=== PATIENT | female | born 1990 | race Caucasian/White ===

== ENCOUNTER → 2022-11-22 | Outpatient (CLI) | payer OTHER, SELFPAY ==
[2022-11-22 15:22] LABS: Absolute Lymphocyte Count 1.47 X10^3/uL (0.83-4.51); Absolute Neutrophil Count 4.8 X10^3/uL (2.0-7.7); Basophil# 0.02 X10^3/uL; Basophil% 0.3 % (0-1); Eosinophil# 0.08 X10^3/uL; Eosinophils% 1.1 % (0-5); Hematocrit 36.7 % (37-47); Hemoglobin 12.4 g/dL (12.0-15.0); Lymphocyte # 1.47 X10^3/ul (0.83-4.51); Lymphocyte % 20.8 % (19-41); Mean Corp Hgb Conc 33.8 g/dL (32-36); Mean Corpuscular Hgb 30.5 pg (27.0-32.0); Mean Corpuscular Volume 90.4 fL (81-99); Mean Platelet Vol. 9.8 fl (6.2-12.0); Monocyte# 0.65 X10^3/uL; Monocyte% 9.2 % (0-10); NRBC Flagged by Analyzer 0 % (0-5); Neutrophil % 67.8 % (47-70); Platelet Count 181 K/mm3 (150-450); RBC Distribution Width CV 13.2 % (11.6-14.6); Red Blood Count 4.06 M/mm3 (4.2-5.4); White Blood Count 7.1 K/mm3 (4.4-11.0)
[2022-11-22 15:40] LABS: ALB/GLOB Ratio 0.6 RATIO (0.9-2.4); AST(SGOT) 14 U/L (15-37); Alanine Aminotransfer ALT/SGPT 16 U/L (13-56); Albumin, Serum 2.6 g/dL (3.2-5.0); Alkaline Phosphatase 97 U/L (45-117); Anion Gap 6 (5-15); BUN 6 mg/dL (7-18); BUN/Creat Ratio 14.9 RATIO (10-20); Calcium,Total 8.9 mg/dL (8.5-10.1); Chloride 108 mmol/L (98-107); EST Glomerular Filtration Rate 191 mL/min (>60); Est Glom Filt Rate - Afr Amer 231 mL/min (>60); Glucose 98 mg/dL (74-106); Potassium 3.6 mmol/L (3.5-5.1); Protein, Total 6.6 g/dL (6.4-8.2); Sodium Level 136 mmol/L (136-145)
[2022-11-22 15:46] LABS: Protein, Urine (Random) < 6.0 mg/dL (<11.9)
[2022-11-22 15:51] LABS: Hemoglobin A1c 5.7 % (3.8-5.6)
[2022-11-22 16:55] LABS: HIV - WCH Non-Reactive (Nonreactive); Hepatitis B Surface Antigen Non-Reactive (Nonreactive); Hepatitis C Antibody Non-Reactive (Nonreactive); Rubella IgG Reactive (Nonreactive); Syphilis Antibodies Non-reactive
--- NOTE | 2022-11-22 18:42 | US_ITS ---
STUDY: SECOND AND THIRD TRIMESTER OBSTETRICAL ULTRASOUND - LIMITED REASON FOR EXAM: Female, 32 years old. Question placenta previa. LMP: Expected date of delivery of January 02, 2023. PRIOR ULTRASOUND: None. TECHNIQUE: Transabdominal and Transvaginal TECHNICAL QUALITY: Adequate. FINDINGS: There is a single intrauterine fetus. The fetus is in a cephalic presentation. There is demonstrated cardiac activity with a heart rate of 160 bpm. There is a normal amniotic fluid volume. The largest amniotic fluid pocket measures 6.92 cm. The amniotic fluid index (ÁLVARO) is 14.17 cm. The placenta is posterior and not low-lying. There is no evidence of previa. There are Grade 1 placental changes. The cervix measures 2.6 cm cm in length. BIOMETRY: BPD: 8.93 cm: 36 weeks, 1 days HC: 33.45 cm: 38 weeks, 2 days AC: 32.62 cm: 36 weeks, 4 days FL: 6.74 cm: 34 weeks, 4 days Age by LMP: 34 weeks, 1 days. PARK by LMP: January 02, 2023.. age by prior US: 36 weeks, 5 days. PARK by prior US: December 15, 2022. age by current US: 36 weeks, 5 days. PARK by current US: December 15, 2022. Estimated weight: 2846 grams, +/- 427 grams, 38 percentile. Gender: Indeterminant US/OB Limited With Biometrics IMPRESSION: 1. Live single intrauterine at 36 weeks, 5 days. PARK is December 15, 2022. This correlates with the expected date of delivery given by the patient based on previous ultrasound. 2. EFW 2846 g. 3. ÁLVARO of 14.17 cm. 4. Posterior grade 1 placenta. There is no evidence of previa. 5. Vertex presentation. Electronically Signed: Theodore Grissom DO at 20:23 EDT ,
== END | disposition home or self-care (01) ==
LOC: US 14:35
PROVIDERS: Referring Provider Obstetrics & Gynecology; Visit Provider Obstetrics & Gynecology
DX: Z34.90 Encounter for supervision of normal pregnancy, unspecified, unspecified trimester (principal)
CPT/HCPCS: 36415; 76816; 80053; 82570; 83036; 84156; 85025; 86703; 86762; 86780; 86803; 86850; 86900; 86901; 87086; 87088; 87340

== ENCOUNTER → 2022-12-05 | Outpatient (CLI) | payer OTHER, SELFPAY | END | disposition home or self-care (01) | LOC: LABSPEC 13:57 | PROVIDERS: Referring Provider Obstetrics & Gynecology; Visit Provider Obstetrics & Gynecology | DX: O09.90 Supervision of high risk pregnancy, unspecified, unspecified trimester (principal); Z3A.00 Weeks of gestation of pregnancy not specified | CPT/HCPCS: 87077; 87081; 87186 ==

== ENCOUNTER → 2022-12-15 | Outpatient (CLI) | payer OTHER, SELFPAY ==
--- NOTE | 2022-12-15 17:00 | US_ITS ---
STUDY: SECOND AND THIRD TRIMESTER OBSTETRICAL ULTRASOUND - LIMITED REASON FOR EXAM: Female, 32 years old growth LMP: 03/28/2022 PRIOR ULTRASOUND: None. TECHNIQUE: Standard TECHNICAL QUALITY: Adequate. FINDINGS: There is a single intrauterine fetus. The fetus is in a cephalic presentation. There is demonstrated cardiac activity with a heart rate of 160 bpm. There is a normal amniotic fluid volume. The largest amniotic fluid pocket measures 7.5 cm cm. The amniotic fluid index (ÁLVARO) is 14.2 cm cm. The placenta is posterior. The cervix measures 2.6 cm in length. BIOMETRY: BPD: 8.93 cm weeks, 1 days HC: 33.45 cm: 38 weeks, 2 days AC: 32.62 cm: 36 weeks, 4 days FL: 6.74 cm: 34 weeks, 4 days Age by LMP: 34 weeks, 1 days. PARK by LMP: 01/02/2023. age by current US: 36 weeks, 5 days. PARK by current US: 12/15/2022. Estimated weight: 2846 grams, +/- 427 grams, 92 percentile. Gender: US/OB Limited With Biometrics IMPRESSION: Single viable intrauterine gestation in cephalic presentation. Mean gestational age 36 week 5 days. Electronically Signed: Jason Combs MD, [place] at 18:12 EDT ,
== END | disposition home or self-care (01) ==
LOC: US 16:56
PROVIDERS: PCP Physician Assistant; Referring Provider Obstetrics & Gynecology; Visit Provider Obstetrics & Gynecology
DX: O26.849 Uterine size-date discrepancy, unspecified trimester (principal); Z3A.00 Weeks of gestation of pregnancy not specified
CPT/HCPCS: 76816

== ENCOUNTER 2022-12-19 06:50 | Inpatient (IN) | payer OTHER, SELFPAY ==
[2022-12-19] VITALS (25 sets, daily range): BP systolic 115–139; BP diastolic 57–81; PULSE 70–104; RESP 16; TEMP 36.4–36.8; O2SAT 96–99; BMI 45.2
[2022-12-19] MEDS: Lactated Ringers 1,000 ML 50 ML IV (08:09)
--- NOTE | 2022-12-19 08:12 | HP.PCM.OB_ITS ---
HPI - General General Date of Admission: 12/19/22 HPI Narrative ERLINDA WONG, is a 32 F who presents at 38 weeks for IOL secondary to uncontrolled GDM. transfer of care by Zarina Hilliard. mild irregular contractions this morning. denies LOF, VB. active movement. GBS positive. growth scan Maternal Data Information PARK Calculator Estimated Delivery Date Method Current WG Current Estimate 01/02/23 LMP (Certain) 38w 0d PFSH PFSH Home Medications docosahexaenoic acid 200 mg capsule ( DHA) mg PO 11/22/22 [History Last Taken Unknown] blood sugar diagnostic (Blood Glucose Test strips) #50 ea 11/28/22 [Rx Last Taken Unknown] blood-glucose meter #1 ea 11/28/22 [Rx Last Taken Unknown] lancets #100 ea 11/28/22 [Rx Last Taken Unknown] metformin 500 mg tablet 1,000 mg PO DAILY 12/12/22 [History Last Taken Unknown] Allergy/AdvReac Type Severity Reaction Status Date / Time No Known Allergies Allergy Verified 12/15/22 08:46 Family History Father Heart disease Grandmother Heart disease Social History Smoking Status: Never smoker alcohol intake: never substance use type: does not use additional social history: -Erick History 8 Elective abortions Hx Para 5 Spontaneous abortions 2 Hx # Term Pregnancies Ectopic pregnancies Hx # Pregnancies Multiple births # of living children 5 Past Pregnancies Del. Date Name GA/Weeks Outcome Route Bth Weight Infant Gen Labor Lgth Anesthesia Del Locatn Provider FOB Unknown TATIANA Unknown EMIGDIO Unknown SALOMA Unknown NATALIYA ATKINSON Unknown darnell Visit Details OB Flowsheet Initial Weight: Not Recorded Date -?-?-?-?-?-?-?-?-?-?-?-?- EGA Weight BP Urine Prot -?-?-?-?-?-?-?-?-?-?-?-?- Glucose FHR FuHt Pres Dilation -?-?-?-?-?-?-?-?-?-?-?-?- Effaced St Visit Note 11/22/22 -?-?-?-?-?-?-?-?-?-?-?-?- 34w 1d 241 lb 2 oz 104/72 -?-?-?-?-?-?-?-?-?-?-?-?- 150 -?-?-?-?-?-?-?-?-?-?-?-?- SM- transfer fro m Zarina Logan for suspecte dmarginal previa, formal scan to be done today at 630. labs done. 12/05/22 -?-?-?-?-?-?-?-?-?-?-?-?- 36w 0d 247 lb 109/75 Negative -?-?-?-?-?-?-?-?-?-?-?-?- Negative -?-?-?-?-?-?-?-?-?-?-?-?- JV- fasting gluc ose levels are all elevated, 2 hr pp are mostly normal unless she eats ice cream and then go up to 160. starting metformin. Her ultrasound shows normal placement of placenta. NST today and twice weekly. deliver at 39 weeks. 12/09/22 -?-?-?-?-?-?-?-?-?-?-?-?- 36w 4d 247 lb 120/78 120/78 Negative -?-?-?-?-?-?-?-?-?-?-?-?- Negative 130 37 3 -?-?-?-?-?-?-?-?-?-?-?-?- 70 -2 KW-+ FM. n o lof/vb. some ctx noted. GBS positive. BS reviewed. fasting borderline. Increase to 1000mg metformin daily. NST for Monday12/12/22 -?-?-?-?-?-?-?-?-?-?-?-?- 37w 0d 243 lb 6 oz 124/86 Nega tive -?-?-?-?-?-?-?-?-?-?-?-?- Negative 150 3 -?-?-?-?-?-?-?-?-?-?-?-?- MH-NST only and reactive. CTX last pm and asked for exam-no change. RTO 3 days. 12/15/22 -?-?-?-?-?-?-?-?-?-?-?-?- 37w 3d 244 lb 4 oz 101/71 Nega tive -?-?-?-?-?-?-?-?-?-?-?-?- Negative 140 46 4 -?-?-?-?-?-?-?-?-?-?-?--?- 80 -1 JV- fundal height at 46 today and we are continuing to increase metformin. recommend 38 week delivery. getting growth scan today to know if safe to deliver vaginally. Vital Signs Vital Signs Vital Signs: Weight Weight: 246 lb Body Mass Index (BMI) 45.2 Labs Labs Labs: Blood Type O POSITIVE Antibody Screen NEGATIVE Hct 36.7 % (37-47) L Hgb 12.4 g/dL (12.0-15.0) Obstetrics US Syphilis Total Ab Non-reactive Rubella IgG Antibody Reactive (Nonreactive) Hep Bs Antigen Non-Reactive (Nonreactive) HIV 1&2 Antibody Non-Reactive (Nonreactive)
--- NOTE | 2022-12-19 08:12 | PCM.HP.OB ---
HPI - General General Date of Admission: 12/19/22 HPI Narrative ERLINDA WONG, is a 32 F who presents at 38 weeks for IOL secondary to uncontrolled GDM, started on metformin with dose increase to 1000mg daily. mild irregular contractions this morning. denies LOF, VB. active movement. GBS positive. growth scan 12/15/2022:2846 grams, +/- 427 grams, 92 percentile. Largest vaginal : 9pounds 1oz, uncomplicated Maternal Data Information APRK Calculator Estimated Delivery Date Method Current WG Current Estimate 01/02/23 LMP (Certain) 38w 0d PFSH PFSH Home Medications docosahexaenoic acid 200 mg capsule ( DHA) mg PO 11/22/22 [History Last Taken Unknown] blood sugar diagnostic (Blood Glucose Test strips) #50 ea 11/28/22 [Rx Last Taken Unknown] blood-glucose meter #1 ea 11/28/22 [Rx Last Taken Unknown] lancets #100 ea 11/28/22 [Rx Last Taken Unknown] metformin 500 mg tablet 1,000 mg PO DAILY 12/12/22 [History Last Taken Unknown] Allergy/AdvReac Type Severity Reaction Status Date / Time No Known Allergies Allergy Verified 12/15/22 08:46 Family History Father Heart disease Grandmother Heart disease Social History Smoking Status: Never smoker alcohol intake: never substance use type: does not use additional social history: -Erick History 8 Elective abortions Hx Para 5 Spontaneous abortions 2 Hx # Term Pregnancies Ectopic pregnancies Hx # Pregnancies Multiple births # of living children 5 Past Pregnancies Del. Date Name GA/Weeks Outcome Route Bth Weight Infant Gen Labor Lgth Anesthesia Del Locatn Provider FOB Unknown TATIANA Unknown VLAD Unknown SALOMA Unknown NATALIYA ATKINSON Unknown darnell Visit Details OB Flowsheet Initial Weight: Not Recorded Date <del>?</del> EGA Weight BP Urine Prot <del>?</del> Glucose FHR FuHt Pres Dilation <del>?</del> Effaced St Visit Note 11/22/22 <del>?</del> 34w 1d 241 lb 2 oz 104/72 <del>?</del> 150 <del>?</del> SM- transfer from Zarina Logan for suspecte dmarginal previa, formal scan to be done today at 630. labs done. 12/05/22 <del>?</del> 36w 0d 247 lb 109/75 Negative <del>?</del> Negative <del>?</del> JV- fasting glucose levels are all elevated, 2 hr pp are mostly normal unless she eats ice cream and then go up to 160. starting metformin. Her ultrasound shows normal placement of placenta. NST today and twice weekly. deliver at 39 weeks. 12/09/22 <del>?</del> 36w 4d 247 lb 120/78 120/78 Negative <del>?</del> Negative 130 37 3 <del>?</del> 70 -2 KW-+ FM. no lof/vb. some ctx noted. GBS positive. BS reviewed. fasting borderline. Increase to 1000mg metformin daily. NST for Monday12/12/22 <del>?</del> 37w 0d 243 lb 6 oz 124/86 Negative <del>?</del> Negative 150 3 <del>?</del> MH-NST only and reactive. CTX last pm and asked for exam-no change. RTO 3 days. 12/15/22 <del>?</del> 37w 3d 244 lb 4 oz 101/71 Negative <del>?</del> Negative 140 46 4 <del>?</del> 80 -1 JV- fundal height at 46 today and we are continuing to increase metformin. recommend 38 week delivery. getting growth scan today to know if safe to deliver vaginally. ROS Cardiovascular Cardiovascular: Denies abdominal pain, chest pain, diaphoresis or dyspnea Respiratory/Chest Respiratory/Chest: Denies shortness of breath at rest or shortness of breath with exertion Genitourinary Genitourinary: Reports change in urinary stream Musculoskeletal Musculoskeletal: Reports none Integumentary Integumentary: Reports none Neurologic Neurologic: Reports none Psychiatric Psychiatric: Reports none Endocrine Endocrinology: Reports none Hematologic/Lymphatic Hematologic/Lymphatic: Reports none Allergic/Immunologic Allergic/Immunologic: Reports none Vital Signs Vital Signs Vital Signs: Weight Weight: 246 lb Body Mass Index (BMI) 45.2 Physical Exam Const alert, oriented x3 and no apparent distress General Appearance: cooperative, comfortable and well kempt Orientation / Consciousness: awake and oriented to person Exam Limitations: no limitations HEENT normocephalic Neck full ROM Chest inspection of chest normal Resp normal respiratory effort, normal air movement and no retractions Effort and Inspection: able to speak in complete sentences and symmetric chest movement Cardio regular rate Peripheral Pulses: pulses 2+ throughout GI normal to inspection, nondistended, normoactive bowel sounds Inspection: gravid no CVA tenderness and appearance of the vagina normal External Female Exam: normal appearance of the urethra; Negative for external lesion OB / External & Speculum: external exam normal Manual OB Exam: estimated gestational size appropriate, presentation cephalic, dilated 4, effaced 80 and station -2 Uterus Palpation: Negative for uterus tender Extremity normal to inspection Skin no rashes or lesions noted Psych Activity / Motor Behavior: appropriate eye contact Speech: normal speech Labs Labs Labs: Blood Type O POSITIVE Antibody Screen NEGATIVE Hct 36.7 % (37-47) L Hgb 12.4 g/dL (12.0-15.0) Obstetrics US Syphilis Total Ab Non-reactive Rubella IgG Antibody Reactive (Nonreactive) Hep Bs Antigen Non-Reactive (Nonreactive) HIV 1&2 Antibody Non-Reactive (Nonreactive) Assessment & Plan (1) Encounter for induction of labor: COMMENT: VTX Pitocin/AROM (2) Positive GBS test: COMMENT: treat with PCN. hold on AROM until adequate (3) Gestational diabetes: COMMENT: starting metformin 12/05/22 start twice weekly nsts, delivery at 38 weeks due to uncontrolled GDM. diabetes protocol for glucose monitoring. (4) : QUALIFIERS: Weeks of gestation: 37 weeks Qualified Code(s): Z3A.37 - 37 weeks gestation of COMMENT: transfer of care from Zarina logan, possible marginal previa.- resolved (5) Supervision of high-risk : COMMENT: PARK 01/02/23 PC Vlad Moses Saloma, Katie, Andrew PLAN: Plan admit with routine orders. updated on admission, POC and exam. will co-manage for uncontrolled GDM. agrees with above plan.
[2022-12-19 08:20] LABS: Absolute Lymphocyte Count 1.66 X10^3/uL (0.83-4.51); Basophil# 0.03 X10^3/uL; Basophil% 0.5 % (0-1); Eosinophils% 1.6 % (0-5); Hematocrit 39.6 % (37-47); Hemoglobin 13.1 g/dL (12.0-15.0); Lymphocyte # 1.66 X10^3/ul (0.83-4.51); Lymphocyte % 25.7 % (19-41); Mean Corp Hgb Conc 33.1 g/dL (32-36); Mean Corpuscular Hgb 30.4 pg (27.0-32.0); Mean Corpuscular Volume 91.9 fL (81-99); Mean Platelet Vol. 10.7 fl (6.2-12.0); Monocyte# 0.63 X10^3/uL; Monocyte% 9.8 % (0-10); NRBC Flagged by Analyzer 0 % (0-5); Neutrophil # 3.96 X10^3/uL (2.7-7.7); Neutrophil % 61.3 % (47-70); Platelet Count 161 K/mm3 (150-450); RBC Distribution Width CV 13.5 % (11.6-14.6); RBC Distribution Width SD 45.1 fl (35.1-43.9); Red Blood Count 4.31 M/mm3 (4.2-5.4); White Blood Count 6.5 K/mm3 (4.4-11.0)
[2022-12-19 09:12] LABS: Syphilis Antibodies Non-reactive
[2022-12-19] MEDS: Oxytocin 15 Units/NS 250ml 15 UNITS/250 ML IV.SOLN 2 UNITS IV (09:21)
[2022-12-19 09:50] LABS: Bedside Glucose 101 mg/dL (74-106)
[2022-12-19 10:46] LABS: Bedside Glucose 92 mg/dL (74-106)
[2022-12-19 10:57] LABS: Chlamydia Trachomatis by PCR Negative (Negative); Neisserai gonorrhoeae by PCR Negative (Negative); Probe Check PASS; Sample Adequacy Control PASS; Specimen Processing Control PASS
[2022-12-19] MEDS: Penicillin G 3,000,000 Units 50 ML 100 UNITS IV (12:12)
[2022-12-19] MEDS: Oxytocin 15 Units/NS 250ml 15 UNITS/250 ML IV.SOLN 83 UNITS IV (15:15)
[2022-12-19 15:21] LABS: Bedside Glucose 89 mg/dL (74-106)
--- NOTE | 2022-12-19 15:38 | OP.PCM_ITS ---
Assessment & Plan (1) (spontaneous vaginal delivery): Maternal Data Information PARK Calculator Estimated Delivery Date Method Current WG Current Estimate 01/02/23 LMP (Certain) 38w 0d
--- NOTE | 2022-12-19 15:38 | EX.PCM.OBRPT ---
Assessment & Plan (1) (spontaneous vaginal delivery): COMMENT: IOL uncontrolled GDM at 38 weeks. , boy, LC (2) Supervision of high-risk : COMMENT: PARK 01/02/23 Vlad Quinteros Saloma, Katie, Andrew (3) : QUALIFIERS: Weeks of gestation: 37 weeks Qualified Code(s): Z3A.37 - 37 weeks gestation of COMMENT: transfer of care from Zarina elliott, possible marginal previa.- resolved (4) Gestational diabetes: COMMENT: starting metformin 12/05/22 start twice weekly nsts, delivery at 38 weeks due to uncontrolled GDM. diabetes protocol for glucose monitoring. Maternal Data Information PARK Calculator Estimated Delivery Date Method Current WG Current Estimate 01/02/23 LMP (Certain) 38w 0d Final PARK Source: LMP Vaginal Delivery Maternal Presentation Maternal Presentation: Medically Indicated Induction Type of Induction: Pitocin Operative Information Date of Procedure: 12/19/22 Pre-Operative Diagnosis: Post-Operative Diagnosis: Surgery / Procedure Performed: Spontaneous Vaginal Delivery Type of Anesthesia: None Estimated Blood Loss: 150 Time of Delivery: 14:36 Findings Description of Procedure: Patient began pushing and delivered the head in the JUAN ANTONIO presentation. The head was delivered atraumatically and a tight nuchal was observed, infant somersaulted over cord. The anterior and posterior shoulders delivered without complication followed by the rest of the infant and the was placed on the maternal abdomen. Delayed cord clamping was employed for 5 minutes. Cord was clamped and cut and gentle traction was applied to the cord and the placenta delivered spontaneously immediately following it was noted to be intact with three-vessel cord. The perineum and vagina were inspected and noted to have no laceration. EBL was 150cc. Patient and tolerated delivery well. Presentation: Vertex Amniotic Membrane Rupture Type: Artificial Time of Membrane Rupture: 1250 Amniotic Fluid Description: Clear Placental Delivery Description: Spontaneous Placenta Disposition: [facility] Cord Vessel Description: 3 Vessels Cord Entanglement: Around neck x 1, tight Nuchal Cord Compression: Without compression Infant A Gender: Male (1 minute): 8 (5 minute): 9 Delayed Cord Clamping: Yes Post Vaginal Delivery Medications Given After Delivery: IV Pitocin Episiotomy Description: None Laceration: None Addendum Addendum: CNM delivery
[2022-12-19 16:36] LABS: Bedside Glucose 91 mg/dL (74-106)
--- NOTE | 2022-12-19 16:39 | DCINST_ITS ---
Discharge Instructions Diet Discharge Diet: No restrictions Activity Discharge Activity: May Not Drive and May Shower May resume sexual activity in: 6 weeks Weight Bearing Status: Full weight bearing Dressing / Incision Call your doctor if your incision/area has: Sudden Increased Bleeding, Increased Pain/ Swelling and Foul Smelling Discharge Call your doctor if you observe: Fever of 101 or Higher, Numbness or Tingling, Change in Color, Inability to urinate, Inability to have a bowel movement, Using more than 1 pad per hour, Shortness of breath, Dizziness, Fainting spells, Chest pain, Calf discomfort and Uncontrolled pain Follow Up Care Please Follow Up With: Dottie Philip CNM When: 6 weeks , please call office to make an appointment. Congratulations on the of your baby boy! Test Results: Test results from this visit will be discussed in further detail at your follow- up appointment, if applicable. Discharge Plan Admission Admit Date/Time: 12/19/22 06:50 Attending Provider: Dottie Philip Primary Care Provider: Khalif Gimenez Discharge Orders/Prescriptions Prescriptions: No Action DHA 200 mg capsule PO metformin 500 mg tablet 1,000 mg PO DAILY Rx Instructions: with dinner (DME) blood-glucose meter Misc See Rx Instructions .MEDSUPPLY Qty: 1 0RF Rx Instructions: As directed- Test fasting and 2 hours after meals (DME) lancets Misc See Rx Instructions .MEDSUPPLY Qty: 100 4RF Rx Instructions: As directed (DME) Blood Glucose Test Strip See Rx Instructions .Route Qty: 50 8RF Rx Instructions: As directed fasting and 2 hours post meals Referrals / Follow Up: Khalif Gimenez PA-C [Primary Care Provider] - Disposition Disposition (needs filled in before D/C Order can be placed): Home, Self Care
[2022-12-20] VITALS (11 sets, daily range): BP systolic 90–125; BP diastolic 22–87; PULSE 61–86; RESP 16–18; TEMP 36.1–36.6; O2SAT 94–98
--- NOTE | 2022-12-20 03:53 | POC_PTH ---
PATIENT: ERLINDA WONG LOC: [facility] U#:[id number] AGE/SX: 32/F ROOM: [facility] RE12/19/[address]: Dottie Philip CNM : 1990 BED: 1 DIS: 12/20/2022 SPEC #: [id number] RECD: 12/20/22 07:54 STATUS: JOLYNN REMamadou #: [id number] FANNY: 12/20/22 03:[address]: Josephine Tubbs DEPT: SURGICAL PATHOLOGY RECD BY: Audrey Lam ENTERED: 12/20/22 07:55 SP TYPE: PROD CONC OTHR DR: AJAY Abarca CNM Tissues: A - Product of conception, NOS B - Product of conception, NOS Procedures: Decalcification bone/plaque Surgery Specimen Level IV Comments: @ Ordering doctor for SUIV edited from RADHA to @ by MARIYA at 12/20/22 1440 @ Submitting doctor edited from RADHA to @ by RGOOD at 12/20/22 1440 HEADER OPERATION: Suction dilation and curettage PRE-OP DIAGNOSIS: Retained products of conception TISSUE SUBMITTED: A ? Products of conception (OB), B - Products of conception (OR) MICROSCOPIC DIAGNOSIS A. Products of conception, removal: Macerated fetus with autolytic changes. Membranous and vascular tissue with autolytic changes. B. Products of conception, removal: Placental and membranous tissue with autolytic changes. AM:jae 12/22/2022 AM:jae 12/23/2022 COMMENT This case was discussed with Dr. Tubbs on 12/23/2022. MICROSCOPIC DESCRIPTION Slides are reviewed. GROSS DESCRIPTION A - Received in fixative is one container labeled with the patient's name and designated products of conception. The specimen consists of an irregular fragment of pink-sarkar tissue measuring 8.0 x 6.5 x 1.0 cm. Attached to this is a string-like sarkar tissue measuring 18.0 cm in length and with a diameter of 0.5 cm. Also present in the specimen container are two fragments of dark red blood clot material measuring 4.0 x 4.0 x 0.7 cm. The tissue cuts with a gritty sensation and grossly resembles flattened and macerated tissue weighing 47 gm. Brand Marketing Manager sections are submitted in three cassettes after decalcification. B - Received in fixative is one container labeled with the patient's name and designated products of conception. The specimen consists of a discoid fragment of rubbery pink-sarkar tissue measuring 13.0 x 12.0 x 1.0 cm. Also present in the specimen container are membranous sarkar tissue measuring in aggregate 5.0 x 3.0 x 1.0 cm. Also present in the specimen container are multiple blood clot-like material measuring in aggregate 10.0 x 8.0 x 1.5 cm. Brand Marketing Manager sections are submitted in three cassettes. / AM:jae 12/20/2022 TC:5 CPT: 60919 x2, 67692
--- NOTE | 2022-12-20 03:53 | POC_PTH ---
PATIENT: ERLINDA WONG LOC: WP U#:[id number] AGE/SX: 32/F ROOM: [facility] RE12/19/[address]: Dottie Philip CNM : 1990 BED: 1 DIS: 12/20/2022 SPEC #: [id number] RECD: 12/20/22 07:54 STATUS: JOLYNN REMamadou #: [id number] FANNY: 12/20/22 03:[address]: Josephine Tubbs DEPT: SURGICAL PATHOLOGY RECD BY: Audrey Lam ENTERED: 12/20/22 07:55 SP TYPE: PROD CONC OTHR DR: AJAY Abarca CNM Tissues: A - Product of conception, NOS B - Product of conception, NOS Procedures: Decalcification bone/plaque Surgery Specimen Level IV Comments: @ Ordering doctor for SUIV edited from RADHA to @ by MARIYA at 12/20/22 1440 @ Submitting doctor edited from RAHDA to @ by RGOOD at 12/20/22 1440 HEADER OPERATION: Suction dilation and curettage PRE-OP DIAGNOSIS: Retained products of conception TISSUE SUBMITTED: A ? Products of conception (OB), B - Products of conception (OR) MICROSCOPIC DIAGNOSIS A. Products of conception, removal: Lacerated fetus with autolytic changes. Membranous and vascular tissue with autolytic changes. B. Products of conception, removal: Placental and membranous tissue with autolytic changes. AM:jae 12/22/2022 MICROSCOPIC DESCRIPTION Slides are reviewed. GROSS DESCRIPTION A - Received in fixative is one container labeled with the patient's name and designated products of conception. The specimen consists of an irregular fragment of pink-sarkar tissue measuring 8.0 x 6.5 x 1.0 cm. Attached to this is a string-like sarkar tissue measuring 18.0 cm in length and with a diameter of 0.5 cm. Also present in the specimen container are two fragments of dark red blood clot material measuring 4.0 x 4.0 x 0.7 cm. The tissue cuts with a gritty sensation and grossly resembles flattened and macerated tissue weighing 47 gm. Pallet Stone Positioner sections are submitted in three cassettes after decalcification. B - Received in fixative is one container labeled with the patient's name and designated products of conception. The specimen consists of a discoid fragment of rubbery pink-sarkar tissue measuring 13.0 x 12.0 x 1.0 cm. Also present in the specimen container are membranous sarkar tissue measuring in aggregate 5.0 x 3.0 x 1.0 cm. Also present in the specimen container are multiple blood clot-like material measuring in aggregate 10.0 x 8.0 x 1.5 cm. Pallet Stone Positioner sections are submitted in three cassettes. / AM:jae 12/20/2022 TC:5 CPT: 32561 x2, 05095
--- NOTE | 2022-12-20 04:03 | US_ITS ---
STUDY: ULTRASOUND OF THE FEMALE PELVIS - COMPLETE REASON FOR EXAM: Female, 32 years old. Tissue expelled 13 hours after live vag delivery -- r/o retained tissue LMP: TECHNIQUE: Transabdominal TECHNICAL QUALITY: Adequate. COMPARISON: None. FINDINGS: The uterus is anteverted and is in a midline position. The uterus measures 18.6 x 2.6 x 9.9 cm. There is suboptimal visualization of the cervix. The endometrium measures 30 mm in thickness, and is heterogeneous and fluid distended. There is visualized echogenic material within the endometrium. There is visualized increased vascularity within the endometrial contents... . There is no demonstrated myometrial mass. I.U.D. - The patient does not have an I.U.D. The ovaries are obscured on this study. There is no fluid in the cul-de-sac. The bladder is mostly decompressed. Polycystic ovary disease: No. US/Pelvic (Non ) IMPRESSION: Findings suspicious for retained products. Electronically Signed: Alysia Rosario MD at 5:36 EDT Reading Location ID and State: [facility] / [place] Tel , Service support ,
--- NOTE | 2022-12-20 04:04 | PCM.CONS.B ---
Consult Date of Consult: 12/20/22 Reason for Consult called by RN to exam patient for tissue coming from vagina with cord like structure.no bleeding. VSS ringed forcep applied and gentle traction with cough to expel tissue. Assessment & Plan Assessment/Plan (1) Tissue unsatisfactory for diagnosis: PLAN: c/w Suly. will obtain ultrasound in AM to rule out retained products. stat if bleeding increases.
--- NOTE | 2022-12-20 05:07 | NURSING ---
Late entry. At 0318 pt called RN for assistance with a blood clot pt noted while going to the restroom. RN entered pt's restroom and discovered a fist-sized ball of tissue between pt's thighs. Tissue still attached inside vagina by a small, stringy piece of tissue. This RN called broker in charge for assistance and nursing staff assisted pt back to bed. Pt denied any symptoms at this time and VS were WNL. Once pt back in bed, RN unable to remove tissue despite tugging gently on tissue hanging out of vagina. MILO Bradford called and updated on situation and this RN requested that CNM evaluate pt. MILO Bradford arrived to unit and removed the tissue using ring forceps. Tissue specimen sent to lab for pathology testing. Pt with no bleeding at this time, but reported slight increase in cramping. Pt denied need for any medication. Per MILO Bradford, this RN to do fundal checks q15 minutes x 1 hour to assess for any additional bleeding. Ultrasound ordered for later this morning, but RN to change ultrasound order to STAT if any increase in bleeding is noted. Once radiology order was entered, radiology manager called [facility] and offered to do u/s now before u/s tech goes home for the morning. Pt taken to u/s by rn community, and radiology manager will bring pt back to unit once u/s is complete. RN to inform CNM of any additional findings or changes in pt status.
[2022-12-20 07:00] LABS: Bedside Glucose 100 mg/dL (74-106)
[2022-12-20] MEDS: Lactated Ringers 1,000 ML 150 ML IV (07:00)
[2022-12-20] MEDS: 0.9% Saline Lock 10 ML Syringe IV (07:04)
--- NOTE | 2022-12-20 07:47 | NURSING ---
RN received phone call from MILO Bradford with update to plan of care at 0635. Orders received to make pt NPO and run Lactated Ringers at 150 cc's/hr. RN received call from wire charger at [address] plan [address] Dr[address] Tubbs. Plan is for pt to be taken to main OR for D&C at 0730. RN to get IV access in pt and start fluids. Dr. Tubbs coming to pt's bedside to update on plan of care.
--- NOTE | 2022-12-20 07:48 | PCM.PN.BLA ---
Progress Note Patient passed abnormal tissue and therefore pelvic ultrasound was ordered and suspected retained products was diagnosed and decision for suction D&C was made to remove retained products. Patient was consented for surgery. Bleeding minimal at time and IV restarted.
[2022-12-20] MEDS: Lidocaine 1% (20 ml mdv) 20 ML Vial (08:05)
[2022-12-20] MEDS: Oxytocin 10 UNITS/ML Vial (08:11)
--- NOTE | 2022-12-20 08:54 | OP.PCM_ITS ---
Problems Associated Problem List Diagnoses (1) (spontaneous vaginal delivery): (2) Gestational diabetes: (3) Tissue unsatisfactory for diagnosis: (4) Retained products of conception: Report of Operation Date of Procedure: 12/20/22 Pre-Operative Diagnosis: retained POC Post-Operative Diagnosis: same and first degree perineal laceration Surgery/Procedure Performed:: d and c with banjo, confirmed removal of all products with bedside ultrasound, repair of first degree perineal laceration Description of Surgical Findings:: first degree perineal laceration noted through perineal body Surgeon: Josephine Tubbs Type of Anesthesia: MAC Specimen's removed: retained placenta Estimated Blood Loss (mL): 100 Fluids Replaced: crystalloid Description of Procedure: Patient was taken to the operating room and placed under MAC anesthesia in the dorsolithotomy position. Upon examination and unrepaired first-degree perineal laceration that was noted to be through the structural element of the perineal body was noted prior to patient prepping. Patient was prepped and draped in normal sterile fashion and the bladder drained. Anterior lip of the cervix was grasped with ring forceps and using a banjo curette sharp curettage was performed until a large 15 cm intact what appeared to be succenturiate lobe was removed without complication. Sharp curettage of the lining of the uterus was performed and specimen sent to pathology for analysis. Bedside ultrasound was performed and the lining noted to be very thin with no remaining retained products. At this time the perineal laceration was repaired to provide s tructural integrity to the perineal body with 3-0 Vicryl Rapide. Patient was awoken and taken recovery in stable condition. Tissue was sent to pathology
[2022-12-25 20:14] LABS: Pathology Specimen OB SEE PATHOLOGY REPORT
== END 2022-12-20 18:25 | disposition home or self-care (01) | DRG 798 ==
PROVIDERS: Obstetrics & Gynecology; Admitting Provider Registered Nurse; PCP Physician Assistant; Referring Provider Registered Nurse; Visit Provider Registered Nurse
PROC: 10D17ZZ Extraction of Products of Conception, Retained, Via Natural or Artificial Opening (ICD-10-PCS; principal; 2022-12-20 08:15)
DX: O24.425 Gestational diabetes mellitus in childbirth, controlled by oral hypoglycemic drugs (principal); Z37.0 Single live birth; O69.81X0 Labor and delivery complicated by cord around neck, without compression, not applicable or unspecified; O99.824 Streptococcus B carrier state complicating childbirth; O73.1 Retained portions of placenta and membranes, without hemorrhage; O70.0 First degree perineal laceration during delivery; Z3A.38 38 weeks gestation of pregnancy
CPT/HCPCS: 59025; 59050; 76815; 76856; 82962; 85025; 86780; 86850; 86900; 86901; 87491; 87591; 88305; 88311; 99221; J7120; A4216; G0378; J2405